=== PATIENT | male | born 1995 | race Caucasian/White ===

== ENCOUNTER 2022-01-09 11:27 | Emergency (ER) | payer OTHER, SELFPAY ==
[2022-01-09] VITALS (9 sets, daily range): BP systolic 107–124; BP diastolic 59–74; PULSE 49–68; RESP 12–22; TEMP 36.6–36.8; O2SAT 98–100
--- NOTE | 2022-01-09 11:45 | RT.EKG_ITS ---
APPROVED REPORT Exam: Resting ECG Reason for Exam: DIZZY Patient Location: E HR:51 bpm ECG Measurements Heart Rate 51 AXIS [place] 134 P 34 QRSd 103 QRS 32 QT 408 T 29 QTc 375 Conclusion Sinus bradycardia...rate< 60 Physiican: no stemi, intervals stable
[2022-01-09] MEDS: Normal Saline 1,000 ML 1000 ML IV (12:08)
[2022-01-09 12:15] LABS: Absolute Basophil Count 0.03 10^3/uL (0.0-0.2); Absolute Eosinophil Count 0.02 10^3/uL (0.0-0.7); Absolute Lymphocyte Count 1.67 10^3/uL (1.2-3.4); Absolute Monocyte Count 0.43 10^3/uL (0.1-0.8); Absolute Neutrophil Count 3.42 10^3/uL (1.2-6.7); Basophils % 0.5; Eosinophils % 0.4; HCT 39.8 % (40.0-50.0); MCH 28.3 pg (27.0-33.0); MCHC 32.7 % (32.0-36.0); MCV 87 fL (80-95); MPV 8.9 fL (8.0-11.0); Monocytes % 7.7; Neutrophils % 61.4; Platelet Count 278 10^3/uL (130-400); RDW 12.2 % (11.8-14.1); RDW-SD 38.9 fL; WBC 5.57 10^3/uL (4.4-10.8)
--- NOTE | 2022-01-09 12:23 | W.ED.GENAD ---
Discharge Plan Disposition Patient Disposition: HOME Condition: Good Discharge Details Clinical Impression: Dehydration, Diarrhea, Lightheadedness Primary Care Provider: Unknown,Unknown ED Provider: Jeferson Hills Home Meds and New Rx's Prescriptions: No Action No Known Home Meds Discharge Instructions Instructions: Dehydration (ED), Acute Diarrhea (ED) Additional Instructions: At this time your work-up has returned very reassuring. Please bring a stool sample into the lab once you have collected it for further analysis. [facility] further discussion of potential evaluation for your lightheadedness that you have had. If you notice any worsening of your symptoms, or any new symptoms such as vomiting, diarrhea, fever, chills, shortness of breath, chest pain, numbness, weakness, or fainting , please return immediately to the emergency department for reevaluation. Please follow up with your primary care provider as soon as possible for reassessment and reevaluation. As always, it was a pleasure participating in your medical care today. Medical Decision Making 26-year-old male with past medical history of depression, but no other significant medical problems who takes no medications who presents today for evaluation of feeling ill and shaky. Patient states that for the last 2 weeks he has had intermittent diarrhea and vomiting. No significant blood. Last time he vomited was 5 days ago. He still does have intermittent loose stools though. He denies any recent foreign travel, drinking out of ponds or streams, or any other sick contacts. Last night while eating dinner he did feel notably lightheaded, he states his fingers turn blue and he felt like he was going to pass out but he did not pass out. He denies any chest pain or shortness of breath. He denies any abdominal pain, or tearing or ripping sensation. He denies any other complaints at this time. No other modifying factors Exam demonstrates dry mucous membranes, no abdominal tenderness whatsoever. Screening EKG is stable. Suspect dehydration and electrolyte abnormalities. Will evaluate for concerning etiologies, monitor closely and reassess. Symptoms inconsistent with AAA, PE, ACS, or severe infectious diarrhea. However out of an abundance of precaution we will perform stool studies to evaluate for these potential concerning etiologies. We will rehydrate. Bedside ultrasound shows no significant cardiac abnormalities 1 PM Laboratory work-up stable, electrolytes normal, CBC unremarkable. Lipase normal. Troponin normal, EKG benign. Patient was reassessed, he feels well. Neurovascular exam remains normal. I had a long discussion with the patient and his who is at bedside, and I suspect there may be a component of vasovagal events that are happening for the patient. His is now adding additional details that sometimes he does get lightheaded during certain episodes which to me sounds like vasovagal events. We will send in paperwork for outpatient stool studies. EKG shows no evidence of Brugada syndrome, epsilon waves, delta waves, or signs of significant dysrhythmia. I do feel he is safe for discharge but does need close follow-up with his PCP at the [place]. Recommended a bland diet of bananas, rice, and carbs, as well as a a probiotic. I have extensively reviewed the treatment plan and discharge instructions with the patient and their family. I have addressed all patient concerns at this time. The patient and family was made aware of what symptoms to monitor for that would warrant a return to the emergency department. Discussed the plan with the patient and family, they demonstrate verbal understanding and agreement with our assessment and plan at this time. The documentation in this chart was dictated using [employer] dictation software. Please excuse any dictation errors. HPI General Date/Time Provider Initiated Documentation: 01/09/22 11:47. HPI Narrative: 26-year-old male with past medical history of depression, but no other significant medical problems who takes no medications who presents today for evaluation of feeling ill and shaky. Patient states that for the last 2 weeks he has had intermittent diarrhea and vomiting. No significant blood. Last time he vomited was 5 days ago. He still does have intermittent loose stools though. He denies any recent foreign travel, drinking out of ponds or streams, or any other sick contacts. Last night while eating dinner he did feel notably lightheaded, he states his fingers turn blue and he felt like he was going to pass out but he did not pass out. He denies any chest pain or shortness of breath. He denies any abdominal pain, or tearing or ripping sensation. He denies any other complaints at this time. No other modifying factors Related Data Home Medications Medication Instructions Recorded Confirmed Unknown [No Known Home Meds] 01/09/22 01/09/22 Allergies Allergy/AdvReac Type Severity Reaction Status Date / Time No Known Allergies Allergy Unverified 01/09/22 11:46 General Stated Complaint: Dizzy/Sync ELIZABETH: 3 Review of Systems All systems reviewed & are unremarkable except as noted in HPI and below PFSH All Active Problems (Updated 01/09/22 @ 12:57 by Jeferson Hills DO) Dehydration (Acute) Diarrhea (Acute) Lightheadedness (Acute) Social History Smoking/Tobacco Use Status: Never Smoking risk assessment performed?: Yes Alcohol Intake: former Drug use: Daily Substance use type: marijuana Do you feel safe at home: Yes Do you feel safe in your relationship?: Yes Exam Narrative Exam Narrative: 1.Const: Well-nourished, Well-developed, appearing stated age 2.Eyes: PERRL, no conjunctival injection, and symmetrical lids. 3.ENT: Atraumatic external nose and ears. Dry MM. Neck: Symmetric, trachea midline, No thyromegaly. 4.CVS: +S1/S2, No murmurs or gallops. Peripheral pulses 2+ and equal in all extremities. Brisk capillary refill in all extremities. 5.RESP: Unlabored respiratory effort. Clear to auscultation bilaterally. No wheezes rales or rhonchi 6.GI: Soft, Nontender/Nondistended, No hepatosplenomegaly. No guarding or rebound. No pain or McBurney's point. Negative Bateman sign. 7.MSK: Normocephalic/Atraumatic, Extremities w/o deformity or ttp No cyanosis or clubbing, Normal movement of all extremities 8.Skin: Warm, Dry. No rashes or lesions. 9.Neuro: barrel rifler hook II-XII grossly intact. Sensation grossly intact, no focal neurologic deficits. 10.Psych: (AAO) x3. Appropriate mood and affect Course Vital Signs Vital signs: Vital Signs Temperature 36.6 C 01/09/22 11:43 Pulse 57 L 01/09/22 11:43 Respiratory Rate 17 01/09/22 11:43 Blood Pressure 124/74 01/09/22 11:43 Pulse Oximetry 98 01/09/22 11:43 Temperature 36.6 C 01/09/22 11:43 Temperature Source Tympanic 01/09/22 11:43 Pulse 57 L 01/09/22 11:43 Respiratory Rate 17 01/09/22 11:43 Respiratory Effort Non-Labored 01/09/22 11:45 Blood Pressure 124/74 01/09/22 11:43 Blood Pressure Position Sitting 01/09/22 11:43 Pulse Oximetry 98 01/09/22 11:43 Oxygen Delivery Method Room Air 01/09/22 11:43 Oxygen Flow Rate 0 01/09/22 11:43 Pain Level 0 01/09/22 11:43 Lab/Test Results Lab/Test Results: Laboratory Tests Range/Units 01/09/22 12:04 WBC (4.4-10.8) 10^3/uL 5.57 RBC (4.36-5.78) 10^6/uL 4.60 Hgb (13.5-17.5) g/dL 13.0 L Hct (40.0-50.0) % 39.8 L MCV (80-95) fL 87 MCH (27.0-33.0) pg 28.3 MCHC (32.0-36.0) % 32.7 RDW (11.8-14.1) % 12.2 Plt Count (130-400) 10^3/uL 278 MPV (8.0-11.0) fL 8.9 Immature Gran % 0.0 Neutrophils % 61.4 Lymphocytes % 30.0 Monocytes % 7.7 Eosinophils % 0.4 Basophils % 0.5 Nucleated RBC % (0.0-0.3) % 0.0 Absolute Neutrophils (1.2-6.7) 10^3/uL 3.42 Absolute Lymphocytes (1.2-3.4) 10^3/uL 1.67 Absolute Monocytes (0.1-0.8) 10^3/uL 0.43 Absolute Eosinophils (0.0-0.7) 10^3/uL 0.02 Absolute Basophils (0.0-0.2) 10^3/uL 0.03 POCUS Exam (ED) Limited Cardiac Exam DATE OF EXAM: 01/09/22 TIME OF EXAM: 12:35 PROVIDER THAT PERFORMED THE STUDY: Jeferson Hills IS THIS A REPEAT EXAM DURING THIS ENCOUNTER: no REASON FOR EXAM: Syncope VISUALIZED STRUCTURES: Four Chambers PERTINENT FINDINGS/IMPRESSION: No apparent abnormalities Exam complete
[2022-01-09 12:32] LABS: ALT 20 U/L (16-63); AST 16 U/L (15-37); Albumin 4.2 g/dL (3.4-5.0); Alkaline Phosphatase 43 U/L (46-116); Anion Gap 6.1 mmol/L (3-11); BUN 13 mg/dL (7-18); Bilirubin, Total 0.5 mg/dL (0.2-1.0); CO2 28.9 mmol/L (21.0-32.0); CREATININE 1.1 mg/dL (0.70-1.30); Calcium 8.9 mg/dL (8.5-10.1); Chloride 105 mmol/L (98-107); Estimated GFR 93.77 (mL/min/1.73m2); Glucose 92 mg/dL (74-106); Lipase 264 U/L (73-393); Magnesium 1.8 mg/dL (1.8-2.4); Potassium 4.1 mmol/L (3.5-5.1); Sodium 140 mmol/L (136-145); Total Protein 7.7 g/dL (6.4-8.2); Troponin I < 50 ng/L (<or=60)
[2022-01-09 19:19] LABS: C Diff PCR Negative (Negative)
[2022-01-10 22:33] LABS: Campylobacter PCR Negative (Negative); Salmonella PCR Negative (Negative); Shiga Toxin PCR Negative (Negative); Shigella/Enteroinvasive Ecoli Negative (Negative)
== END 2022-01-09 13:14 | disposition home or self-care (01) ==
PROVIDERS: Emergency Provider Student in an Organized Health Care Education/Training Program
DX: E86.0 Dehydration (principal); R19.7 Diarrhea, unspecified; R42 Dizziness and giddiness
CPT/HCPCS: 36415; 80053; 83690; 87329; 87493; 87505; 93005; 93308; 96360; 99284; 83735; 84484; 85025; 93010

== ENCOUNTER 2022-01-29 15:40 | Emergency (ER) | payer OTHER, SELFPAY ==
[2022-01-29] VITALS (27 sets, daily range): BP systolic 113–151; BP diastolic 55–91; PULSE 86–133; RESP 11–32; TEMP 36.8; O2SAT 96–100
--- NOTE | 2022-01-29 15:30 | RT.EKG_ITS ---
APPROVED REPORT Exam: Resting ECG Reason for Exam: syncope Patient Location: E HR:79 bpm ECG Measurements Heart Rate 79 AXIS [place] 134 P 65 QRSd 117 QRS 9 QT 508 T 41 QTc 580 Conclusion Sinus rhythm...normal P axis, V-rate 60- 99 Nonspecific intraventricular conduction delay...QRSd >115mS, not LBBB/RBBB Nonspecific T abnormalities, inferior leads...T <-0.10mV, II III aVF Prolonged QT interval...QTc >488mS significant artifact
--- NOTE | 2022-01-29 15:45 | DI.CT_ITS ---
Exam(s) CT HEAD WO EXAM: CT HEAD WO CLINICAL HISTORY: fall. TECHNIQUE: Imaging Protocol: Axial computed tomography images with coronal and sagittal reformatted images were created and reviewed COMPARISON: CT HEAD WITHOUT CONTRAST from 07/31/2010 FINDINGS: Ventricles and Extra axial spaces: Normal in size and morphology for the patient's age. Hemorrhage: None. Cerebral parenchyma: Normal. Midline shift: None. Brainstem/Cerebellum: Normal. Calvarium: Normal. Visualized Paranasal sinuses/Mastoids: Mild mucosal thickening maxillary and ethmoid sinuses. Soft Tissues: Unremarkable. IMPRESSION: No acute intracranial process. RADIATION DOSE DELIVERED: 843.64mGy.cm Total DLP DATA REPOSITORY: All CT scans at this facility are submitted to the National Radiology Data Registry (NRDR) Dose Index Registry (DIR) with the [employer] (ACR). RADIATION OPTIMIZATION: All CT scans at this facility use at least one of these dose optimization te chniques: automated exposure control; mA and/or kV adjustment per patient size (includes targeted exa ms where dose is matched to clinical indication); or iterative reconstruction.
[2022-01-29] MEDS: LORazepam 2 MG/ML VIAL (15:51)
[2022-01-29 16:18] LABS: Abs Immature Grans 0.02 10^3/uL (0.0-0.06); Absolute Basophil Count 0.01 10^3/uL (0.0-0.2); Absolute Eosinophil Count 0.01 10^3/uL (0.0-0.7); Absolute Lymphocyte Count 1.94 10^3/uL (1.2-3.4); Absolute Monocyte Count 0.54 10^3/uL (0.1-0.8); Absolute Neutrophil Count 7.41 10^3/uL (1.2-6.7); Basophils % 0.1; Eosinophils % 0.1; HCT 42.5 % (40.0-50.0); HGB 14.4 g/dL (13.5-17.5); Immature Grans % 0.2; Lymphocytes % 19.5; MCH 28.3 pg (27.0-33.0); MCHC 33.9 % (32.0-36.0); MCV 84 fL (80-95); MPV 9.4 fL (8.0-11.0); Monocytes % 5.4; Neutrophils % 74.7; Platelet Count 220 10^3/uL (130-400); RBC 5.09 10^6/uL (4.36-5.78); RDW 12.2 % (11.8-14.1); RDW-SD 37.1 fL; WBC 9.93 10^3/uL (4.4-10.8)
[2022-01-29] MEDS: Acetaminophen 500 MG TAB 1000 MG PO (16:25)
[2022-01-29] MEDS: Lactated Ringers 1,000 ML 1000 ML IV (16:26)
[2022-01-29] MEDS: LORazepam 2 MG/ML VIAL 1 MG IM (16:27)
[2022-01-29 16:34] LABS: ALT 27 U/L (16-63); AST 22 U/L (15-37); Albumin 4.3 g/dL (3.4-5.0); Alkaline Phosphatase 51 U/L (46-116); Anion Gap 14.9 mmol/L (3-11); BUN 10 mg/dL (7-18); Bilirubin, Total 0.7 mg/dL (0.2-1.0); CO2 24.1 mmol/L (21.0-32.0); CREATININE 1.2 mg/dL (0.70-1.30); Calcium 9.3 mg/dL (8.5-10.1); Chloride 100 mmol/L (98-107); Estimated GFR 83.95 (mL/min/1.73m2); Glucose 98 mg/dL (74-106); Lipase 92 U/L (73-393); Magnesium 1.3 mg/dL (1.8-2.4); Potassium 3.5 mmol/L (3.5-5.1); Sodium 139 mmol/L (136-145); Total Protein 8.4 g/dL (6.4-8.2)
[2022-01-29 16:53] LABS: ETHANOL BLOOD < 3.0 mg/dL (<10)
[2022-01-29] MEDS: MAGNESIUM SULFATE 2 GM/50 ML BAG IVPB (16:58)
--- NOTE | 2022-01-29 17:53 | DI.VRAD_ITS ---
PROCEDURE INFORMATION: Exam: CT Head Without Contrast Exam date and time: 01/29/2022 5:32 PM Age: 27 years old Clinical indication: Other: Fall TECHNIQUE: Imaging protocol: Computed tomography of the head without contrast. Radiation optimization: All CT scans at this facility use at least one of these dose optimization techniques: automated exposure control; mA and/or kV adjustment per patient size (includes targeted exams where dose is matched to clinical indication); or iterative reconstruction. COMPARISON: No relevant prior studies available. FINDINGS: Brain: Cerebral sulci show bilateral symmetry with no supratentorial mass or mass effect detected. Brainstem and cerebellum are unremarkable. There is no evidence of acute intracranial hemorrhage. Cerebral ventricles: Ventricular and cisternal spaces are normal in size and configuration and there is no midline shift or hydrocephalus seen. Paranasal sinuses: Mild bilateral maxillary mucosal disease noted. Mastoid air cells: Grossly clear bilaterally. Bones/joints: Bony calvarium and skull base are intact and no acute fractures are detected. Soft tissues: Unremarkable. IMPRESSION: Unremarkable noncontrast head CT with no evidence of an acute intracranial process. Dictated and Authenticated by: Leif Oneal MD. Ordering:KELLE Welch MD
[2022-01-29] MEDS: Prochlorperazine 10 MG/2 ML VIAL (18:00)
[2022-01-29] MEDS: Normal Saline 100 ML 200 ML (18:00)
[2022-01-29] MEDS: Ketorolac 15 MG/ML VIAL IVP (18:19)
--- NOTE | 2022-01-29 19:00 | RT.EKG_ITS ---
APPROVED REPORT Exam: Resting ECG Reason for Exam: albaro Patient Location: E HR:77 bpm ECG Measurements Heart Rate 77 AXIS [place] 155 P 71 QRSd 99 QRS 67 QT 394 T 54 QTc 446 Conclusion Sinus rhythm...normal P axis, V-rate 60- 99
[2022-01-29 19:08] LABS: Bilirubin Negative (Negative); Blood Negative (Negative); Clarity Clear (Clear); Glucose Negative (Negative); Ketones >=160 mg/dL (Negative); Leukocyte Esterase Negative (Negative); Nitrite Negative (Negative); Specific Gravity 1.025 (1.005-1.025)
--- NOTE | 2022-01-29 19:17 | ED.GENADUL_ITS ---
Discharge Plan Disposition Patient Disposition: HOME Condition: Stable Discharge Details Clinical Impression: Dehydration, Hypomagnesemia, Alcoholism, Pre-syncope, Influenza Primary Care Provider: Unknown,Unknown ED Provider: Rebekah Venegas Home Meds and New Rx's Prescriptions: New magnesium gluconate 27.5 mg magne- sium (500 mg) tablet 27.5 mg PO BID Qty: 14 0RF Discharge Instructions Instructions: Dehydration (ED), Influenza (ED), Hypomagnesemia (ED), Near Syncope (ED) Additional Instructions: Take magnesium as prescribed Make sure you eat and drink regularly, you were very dehydrated today You have influenza likely, your symptoms will likely last for 7 to 14 days Please return earlier should you have new or worsening complaints Take ibuprofen and Tylenol for fever control, your temp of 101 here Please try to cut down on your alcohol consumption, do not stop abruptly or you may have withdrawal symptoms Return earlier should you have new or worsening complaints Medical Decision Making CT brain does not show evidence of acute abnormality, hypomagnesemia, 1.3, no evidence of seizure-like activity Please see my attending EKG interpretation, initial possible to ligation of QTC, however on repeat assessment, this is normalized Given 2 g of mag in the emergency department Ketonuria, likely UTI, dehydration, given history of been able to tolerate p.o. Ambulatory with steady gait Patient with follow-up list, patient will need very close outpatient reassessment Sound like he has been having these meds and intermittently for the past several months. He has been evaluated in this emergency department for. She denies any palpitations or chest pain associated. 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 He lasting last evening, he typically only drinks evenings per patient. Again no history of alcohol withdrawal and did consume half Of Alcohol Last Evening. Medical Records Medical records reviewed: Yes I reviewed the patient's medical records. Lab Data Lab results reviewed: Yes I reviewed the patient's lab results. HPI General Date/Time Provider Initiated Documentation: 01/29/22 15:52 . Related Data Home Medications Medication Instructions Recorded Confirmed magnesium gluconate 27.5 mg 27.5 mg PO BID #14 tabs 01/29/22 magnesium (500 mg) tablet Previous Rx's Medication Instructions Recorded magnesium gluconate 27.5 mg 27.5 mg PO BID #14 tabs 01/29/22 magnesium (500 mg) tablet Allergies Allergy/AdvReac Type Severity Reaction Status Date / Time No Known Allergies Allergy Unverified 01/09/22 11:46 General Stated Complaint: AMS/LOC ELIZABETH: 2 Review of Systems All systems reviewed & are unremarkable except as noted in HPI and below PFSH All Active Problems (Updated 01/29/22 @ 19:24 by ANA Alberts) Dehydration (Acute) Diarrhea (Acute) Lightheadedness (Acute) Hypomagnesemia (Acute) Alcoholism (Acute) Pre-syncope (Acute) Influenza (Acute) Social History Smoking/Tobacco Use Status: Never Smoking risk assessment performed?: Yes Alcohol Intake: current Alcohol Intake frequency: 3 or more drinks per day Alcohol type: hard liquor Drug use: Daily Substance use type: marijuana Do you feel safe at home: Yes Do you feel safe in your relationship?: Yes Exam Const General: well developed Orientation: alert HENMT Head: normal to inspection Throat: uvula midline Eyes Pupils: PERRL EOM: nystagmus Neck Other: no midline tenderness Resp Effort & Inspection: normal respiratory effort Auscultation: clear to auscultation bilaterally Cardio Rate: regular rate Rhythm: regular rhythm GI Inspection: normal to inspection Skin General skin exam: no rashes or lesions noted Neuro General: patient alert and patient oriented x3 Cranial Nerves: CN's II-XI intact bilaterally, tongue midline and nystagmus Cognition: normal cognition Speech: speech normal Gait: normal gait Sensory Exam: no sensory deficits noted Extrem General: normal to inspection Psych Appearance: well kempt Affect: anxious affect Course Vital Signs Vital signs: Vital Signs Respiratory Rate 19 01/29/22 15:44 Temperature 36.8 C 01/29/22 16:08 Temperature Source Oral 01/29/22 16:08 Pulse 96 H 01/29/22 17:31 Pulse 107 H 01/29/22 18:50 Respiratory Rate 11 L 01/29/22 18:50 Respiratory Effort Non-Labored 01/29/22 17:19 Respiratory Depth Normal 01/29/22 17:19 Respiratory Pattern Normal 01/29/22 17:19 Blood Pressure 127/61 01/29/22 17:31 Blood Pressure Mean 75 01/29/22 17:31 Blood Pressure Position Left Lateral 01/29/22 16:08 Pulse Oximetry 96 01/29/22 18:40 Oxygen Delivery Method Room Air 01/29/22 16:08 Oxygen Flow Rate 0 01/29/22 16:08 Pain Level 4 01/29/22 16:25 Lab/Test Results Lab/Test Results: Laboratory Tests Range/Units 01/29/22 01/29/22 01/29/22 15:40 15:40 15:40 WBC (4.4-10.8) 10^3/uL 9.93 RBC (4.36-5.78) 10^6/uL 5.09 Hgb (13.5-17.5) g/dL 14.4 Hct (40.0-50.0) % 42.5 MCV (80-95) fL 84 MCH (27.0-33.0) pg 28.3 MCHC (32.0-36.0) % 33.9 RDW (11.8-14.1) % 12.2 Plt Count (130-400) 10^3/uL 220 MPV (8.0-11.0) fL 9.4 Immature Gran % 0.2 Neutrophils % 74.7 Lymphocytes % 19.5 Monocytes % 5.4 Eosinophils % 0.1 Basophils % 0.1 Nucleated RBC % (0.0-0.3) % 0.0 Absolute Neutrophils (1.2-6.7) 10^3/uL 7.41 H Absolute Lymphocytes (1.2-3.4) 10^3/uL 1.94 Absolute Monocytes (0.1-0.8) 10^3/uL 0.54 Absolute Eosinophils (0.0-0.7) 10^3/uL 0.01 Absolute Basophils (0.0-0.2) 10^3/uL 0.01 Sodium (136-145) mmol/L 139 Potassium (3.5-5.1) mmol/L 3.5 Chloride (98-107) mmol/L 100 Carbon Dioxide (21.0-32.0) mmol/L 24.1 Anion Gap (3-11) mmol/L 14.9 H BUN (7-18) mg/dL 10 Creatinine (0.70-1.30) mg/dL 1.2 Est GFR (CKD-EPI 2020) (mL/min/1.73m2) 83.95 Glucose (74-106) mg/dL 98 Calcium (8.5-10.1) mg/dL 9.3 Magnesium (1.8-2.4) mg/dL 1.3 L Total Bilirubin (0.2-1.0) mg/dL 0.7 AST (15-37) U/L 22 ALT (16-63) U/L 27 Alkaline Phosphatase (46-116) U/L 51 Total Protein (6.4-8.2) g/dL 8.4 H Albumin (3.4-5.0) g/dL 4.3 Lipase (73-393) U/L 92 TSH (0.36-3.74) uIU/mL 1.20 Urine Color (Yellow) Urine Clarity (Clear) Urine pH (5-8) Ur Specific [place] (1.005-1.025) Urine Protein (Negative) mg/dL Urine Ketones (Negative) mg/dL Urine Blood (Negative) Urine Nitrite (Negative) Urine Bilirubin (Negative) Urine Urobilinogen (Up TO 0.2) EU/dL Ur Leukocyte Esterase (Negative) Urine Glucose (Negative) mg/dL Ethyl Alcohol (<10) mg/dL < 3.0 Range/Units 01/29/22 18:50 WBC (4.4-10.8) 10^3/uL RBC (4.36-5.78) 10^6/uL Hgb (13.5-17.5) g/dL Hct (40.0-50.0) % MCV (80-95) fL MCH (27.0-33.0) pg MCHC (32.0-36.0) % RDW (11.8-14.1) % Plt Count (130-400) 10^3/uL MPV (8.0-11.0) fL Immature Gran % Neutrophils % Lymphocytes % Monocytes % Eosinophils % Basophils % Nucleated RBC % (0.0-0.3) % Absolute Neutrophils (1.2-6.7) 10^3/uL Absolute Lymphocytes (1.2-3.4) 10^3/uL Absolute Monocytes (0.1-0.8) 10^3/uL Absolute Eosinophils (0.0-0.7) 10^3/uL Absolute Basophils (0.0-0.2) 10^3/uL Sodium (136-145) mmol/L Potassium (3.5-5.1) mmol/L Chloride (98-107) mmol/L Carbon Dioxide (21.0-32.0) mmol/L Anion Gap (3-11) mmol/L BUN (7-18) mg/dL Creatinine (0.70-1.30) mg/dL Est GFR (CKD-EPI 2020) (mL/min/1.73m2) Glucose (74-106) mg/dL Calcium (8.5-10.1) mg/dL Magnesium (1.8-2.4) mg/dL Total Bilirubin (0.2-1.0) mg/dL AST (15-37) U/L ALT (16-63) U/L Alkaline Phosphatase (46-116) U/L Total Protein (6.4-8.2) g/dL Albumin (3.4-5.0) g/dL Lipase (73-393) U/L TSH (0.36-3.74) uIU/mL Urine Color (Yellow) Yellow Urine Clarity (Clear) Clear Urine pH (5-8) 7.0 Ur Specific [place] (1.005-1.025) 1.025 Urine Protein (Negative) mg/dL Negative Urine Ketones (Negative) mg/dL >=160 H Urine Blood (Negative) Negative Urine Nitrite (Negative) Negative Urine Bilirubin (Negative) Negative Urine Urobilinogen (Up TO 0.2) EU/dL 1.0 H Ur Leukocyte Esterase (Negative) Negative Urine Glucose (Negative) mg/dL Negative Ethyl Alcohol (<10) mg/dL PAWSS Have you Been Recently Intoxicated or Drunk Within the Last 30 days?: Yes Have you Ever Experienced Previous Episodes of Alcohol Withdrawal?: No Have you ever Experienced Withdrawal Seizures?: No Have you ever Experienced Delirium Tremens(DT)s?: No Have you ever undergone Alcohol Rehabilitation Treatment (i.e, inpt ot outpatient treatment programs)?: No Have you ever Experienced Blackouts?: No Have you ever Combined Alcohol with other Downers within the last 90 days?: No Have you ever Combined Alcohol with any other Substance of Abuse during the last 90 days?: No Positive Blood Alcohol level on Presentation? [PCS.BAL]: No Evidence of Increased Autonomic Activity (i.e. HR>120, tremor, sweating, agitation, nausea)?: No Result: 1
[2022-01-29 19:33] LABS: *AMPHETAMINES SCREEN URINE Negative (Negative); *BARBITURATES SCREEN URINE Negative (Negative); *BENZODIAZEPINES SCREEN URINE Negative (Negative); Cannabinoids THC Positive (Negative); Cocaine Screen,Urine Negative (Negative); METHADONE URINE SCREEN Negative (Negative); OPIATES URINE SCREEN Negative (Negative)
[2022-01-29 19:34] LABS: Tricyclic Antidepressants Negative (Negative)
--- NOTE | 2022-01-29 19:38 | NUR.NOTE ---
Referral to Care Management to get patient an appt at the [facility] in either [facility] or [facility] for low magnesium, alcoholism, anxiety.Nursing Note:
--- NOTE | 2022-01-31 08:53 | CMPROGNOTE_ITS ---
- If Service Date Differs Date of service: 01/31/22 Time of Service: 08:53 Care Management Progress Note Tereso presents in the ED for hypomagnesemia, dehydration and lightheadedness/pre-syncope. DOLORES receives a request from ED provider to assist patient in obtaining a follow up appointment with his PCP meme. DOLORES contacts Tereso to ask who his PCP is. Tereso advises he sees Dr. Alexander at the [facility]. With Tereso's verbal permission, DOLORES telephones the [facility] ([phone]) to advise them Tereso was recently seen twice in our ED and to ask that they contact him to schedule a follow up appointment meme. At the [facility]'s request, DOLORES faxes ED visit notes dated 01/09/22 and 01/29/22, along with a radiology report dated 01/29/22 (fax # [phone])to the attention of ANA Alcocer, for his review. DOLORES also telephones Tereso to let him know his PCP will review the records and will contact him directly to schedule a follow up appointment.
== END 2022-01-29 19:35 | disposition home or self-care (01) ==
PROVIDERS: Emergency Provider Physician Assistant
DX: J11.1 Influenza due to unidentified influenza virus with other respiratory manifestations (principal); E86.0 Dehydration; E83.42 Hypomagnesemia; F10.20 Alcohol dependence, uncomplicated; R55 Syncope and collapse; R82.4 Acetonuria; Y90.9 Presence of alcohol in blood, level not specified
CPT/HCPCS: 80053; 80307; 83690; 93005; 96365; 96366; 96372; 96375; 99284; 70450; 80320; 81003; 83735; 84443; 85025; 93010; 99285; J0780; J1885; J2060

== ENCOUNTER 2022-06-18 04:03 | Outpatient (CLI) | payer OTHER, SELFPAY ==
--- NOTE | 2022-06-18 16:46 | PDOC.EEG ---
Neurology EEG EEG: [facility] Department of Neurology EEG REPORT Date of Recordin06/18/22 Interpreting Physician: Dr. Kristal Lujan PCP/Referring Provider: Dr. Tereso Sherwood Reason for study: Mr. Villanueva has 2 years of spells with CHEL. Current Medications: none. METHODS: A 21 channel digitized electroencephalogram was performed in the [facility]. The 10/20 international system of electrode placement was used and bipolar and referential electrode montages were recorded. In addition to EEG the patient was monitored for EKG and lateral/vertical eye movements. Activation procedures of photic stimulation and hyperventilation were performed if applicable. Video was used during activation procedures and during events where applicable. The duration of the recording was 30 minutes. DESCRIPTION OF EEG: The patient was noted to be awake, drowsy, and asleep during the recording. During maximal wakefulness a 10-Hz posterior background rhythm was present which was well-modulated, symmetrical, reactive to eye opening, and of moderate voltage. With eye opening the background activity changed to a low voltage mixture of alpha, beta, and occasional theta range frequencies. Faster frequencies were present in the bilateral anterior head regions. There was a normal anterior-posterior voltage gradient. During drowsiness, there was attenuation of the posterior dominant background rhythm and vertex waves. Stage II sleep was present with symmetrical sleep spindles, K-complexes, and vertex waves. Activating Procedures: Photic stimulation was performed which produced a symmetrical posterior driving response at various flash frequencies. Hyperventilation was performed with moderate effort and produced no physiological slowing of the background. EKG: EKG revealed normal sinus rhythm. INTERPRETATION: This EEG is normal during the awake and sleep states as well as during photic stimulation and hyperventilation. PRIOR EEG: none CLINICAL CORRELATION: No focal regions of cerebral dysfunction or epileptiform activity was present. Epilepsy remains a clinical diagnosis and a normal EEG does not rule out epilepsy. Clinical correlation is advised. Kristal Lujan MD
== END 2022-06-18 04:04 | disposition home or self-care (01) ==
PROVIDERS: Visit Provider Psychiatry & Neurology Neurology
DX: R55 Syncope and collapse (principal)
CPT/HCPCS: 95819